=== PATIENT | female | born 1950 | race Caucasian/White ===

== ENCOUNTER 2018-09-15 10:38 | Outpatient (REF) | payer MEDICARE, MEDICAID, SELFPAY ==
[2018-09-15 14:04] LABS: HCT 44.9 % (36.0-46.0); HGB 15.3 g/dL (12.0-15.5); Mean Corp. HGB Concentration 34.1 g/dL (32.0-36.0); Mean Corpuscular Hemoglobin 31.4 pg (27.0-33.0); Mean Corpuscular Volume 92.2 fL (80-95); Mean Platelet Volume 11.7 fL (8.0-11.0); Platelet Count 263 x1000/uL (130-400); RBC 4.87 m/cumm (4.00-5.20); White Blood Cell Count 6.49 k/cumm (4.4-10.8)
[2018-09-15 14:18] LABS: ALT 18 U/L (12-78); AST 15 U/L (15-37); Albumin 4.4 g/dL (3.4-5.0); Alkaline Phosphatase 74 U/L (46-116); BUN 14 mg/dL (7-18); Bilirubin, Total 0.9 mg/dL (0.2-1.0); CREATININE 1.15 mg/dL (0.55-1.02); Calcium 9.8 mg/dL (8.5-10.1); Chloride 102 mmol/L (98-107); Cholesterol 260 mg/dL (50-200); Estimated GFR 46.92 (mL/min/1.73m2); Glucose 86 mg/dL (70-100); HDL Cholesterol 58 mg/dL (40-60); LDL CHOLESTEROL 183 mg/dL (<100); Potassium 3.8 mmol/L (3.5-5.1); Sodium 139 mmol/L (136-145); Total Protein 7.3 g/dL (6.4-8.2); Triglyceride 107 mg/dL (30-150)
== END 2018-09-15 10:58 ==
LOC: NCHCN 10:38
PROVIDERS: PCP Nurse Practitioner Family; Visit Provider Family Medicine
DX: E78.5 Hyperlipidemia, unspecified (principal); E06.3 Autoimmune thyroiditis; E55.9 Vitamin D deficiency, unspecified
CPT/HCPCS: 80053; 80061; 83721; 85027